=== PATIENT | male | born 1985 | race African-American/Black ===

== ENCOUNTER 2016-12-17 21:50 | Emergency (ER) | payer SELFPAY ==
[~2016-12-17] VITALS: Ht 188 cm; Wt 90.7 kg
[2016-12-17 22:10] VITALS: BP 174/78
--- NOTE | 2016-12-17 22:19 | Emergency Room Report ---
History of Present Illness General Chief Complaint: Wound Recheck/Suture Removal Source: Patient Present Illness HPI Patient sutured post trauma. Here for suture removal. Eye still with redness. No fevers. Lip still swollen. Has productive cough, and chest pain. Never with inhaler use in the past. Has been for several days. In past has had benefit from codeine. No sore throat. He reports pain 10/10, both where sutures were and also in chest due to the cough. No cardiac problems. + smokes cannabis No NVD. Allergies: Coded Allergies: GUAIFENESIN (Verified Allergy, Unknown, 12/17/16) Patient History Past Medical History: see triage record Social History: Reports: smoking Reviewed Nursing Documentation: PMH: Agreed, PSxH: Agreed Nursing Documentation-PMH Past Medical History: No Stated History Review of Systems All Other Systems: negative except mentioned in HPI Physical Exam Vital Signs Date Time Temp Pulse Resp B/P (MAP) Pulse Ox O2 Delivery O2 Flow Rate FiO2 12/17/16 22:05 98.1 80 16 174/78 96 Room Air Eyes: right eye Scleral Injection, bilateral eye PERRL, bilateral eye EOMI ENT: other - R lip swelling Neck: full range of motion, supple Respiratory: rhonchi, wheezing, expiration Cardiovascular #1: regular rate, rhythm Gastrointestinal: normal inspection Musculoskeletal: gait/station normal, normal range of motion Neurologic: grossly normal Psychiatric: mood/affect normal - pressuring for opiates Skin: wd healing/no infection noted Procedures Additional Procedure Procedure Narrative sutures removed Medical Decision Making Diagnostic Impression: Primary Impression: Bronchospasm with bronchitis, acute Additional Impression: Encounter for removal of sutures ER Course Patient here for suture removal but c/o cough. Ddx: bronchospasm, bronchitis, early pneumonia. Wounds are well healed and sutures will be removed. Albuterol indicated. Patient exam inconsistent with reported pain. Sutures removed - tolerated well. Improved with albuterol. Purulent sputum with bronchospasm - antibiotics indicated. Patient stable for outpatient observation and treatment. Patient still pressuring for opiates. Last Vital Signs Date Time Temp Pulse Resp B/P (MAP) Pulse Ox O2 Delivery O2 Flow Rate FiO2 12/18/16 00:25 98.1 18 174/78 95 Room Air 12/17/16 23:16 87 Status: improved Disposition: HOME, SELF-CARE Condition: Improved Scripts Ibuprofen* (MOTRIN*) 600 Mg Tablet 600 MG ORAL Q6H Y for For Pain, #20 TAB Prov: Brian Esquivel M.D. 12/18/16 Albuterol Sulfate* (ALBUTEROL SULFATE MDI*) 8.5 Gm Hfa.aer.ad 2 PUFF INH Q6H Y for cough/wheezes, #1 EA 0 Refills Prov: Brian Esquivel M.D. 12/18/16 Promethazine/Dextromethorphan (Promethazine-Dm Syrup) 473 Ml Syrup 1 TSP ORAL Q6H Y for For Cough, #118 ML 0 Refills Prov: Brian Esquivel M.D. 12/18/16 Levofloxacin* (LEVAQUIN*) 500 Mg Tablet 500 MG ORAL DAILY, #7 TAB Prov: Brian Esquivel M.D. 12/18/16 Brian Esquivel M.D. Dec 17, 2016 22:19
[2016-12-17] MEDS ORDERED: Albuterol ud Inhalation HHN ONE (23:15)
[2016-12-18] MEDS ORDERED: ALBUTEROL SULF8.5 GM INH (00:14)
[2016-12-18] MEDS ORDERED: LEVAQUIN500 MG ORAL (00:14)
[2016-12-18] MEDS ORDERED: PHENERGAN6.25 MG/5 ORAL (00:14)
[2016-12-18] MEDS ORDERED: IBUPROFEN600 MG ORAL (00:18)
[2016-12-18 00:25] VITALS: BP 174/78
== END 2016-12-18 00:26 | disposition home or self-care (01) ==
LOC: EMR 22:30
DX: J20.9 Acute bronchitis, unspecified (principal); Z48.02 Encounter for removal of sutures; F17.200 Nicotine dependence, unspecified, uncomplicated
CPT/HCPCS: 94640; 94664; 99283